=== PATIENT | female | born 1955 | race Caucasian/White ===

== ENCOUNTER → 2016-07-26 | Outpatient (CLI) | payer OTHER ==
--- NOTE | 2016-07-26 09:18 | CPEKG ---
Heart Rate: 52 RR Interval: 1154 P-R Interval: 140 QRSD Interval: 98 QT Interval: 440 QTC Interval: 410 P [place]: 23 QRS [place]: 66 T Wave [place]: 68 EKG Severity - NORMAL ECG - EKG Impression: SINUS RHYTHM Electronically Signed By: Jd Milner 26-Jul-2016 16:16:56
== END ==
LOC: FCP 08:56
DX: Z13.6 Encounter for screening for cardiovascular disorders (principal); C54.1 Malignant neoplasm of endometrium

== ENCOUNTER → 2016-07-26 | Outpatient (CLI) | payer OTHER | LOC: FIMAGING 09:40 | DX: Z01.811 Encounter for preprocedural respiratory examination (principal); C54.1 Malignant neoplasm of endometrium; J44.9 Chronic obstructive pulmonary disease, unspecified; I51.7 Cardiomegaly ==

== ENCOUNTER → 2016-12-20 | Outpatient (CLI) | payer OTHER | LOC: FIMAGING 15:05 | PROVIDERS: ATTEND Obstetrics & Gynecology | DX: Z12.31 Encounter for screening mammogram for malignant neoplasm of breast (principal) | CPT/HCPCS: G0202 ==